=== PATIENT | male | born 1965 | race Caucasian/White ===

== ENCOUNTER 2020-02-03 13:21 | Emergency (ER) | payer BC ==
--- NOTE | 2020-02-03 13:44 | EDM.PDOC ---
ED HPI GENERAL MEDICAL PROBLEM - General Chief Complaint: Lower Extremity Injury/Pain Stated Complaint: FOOT RED AND SWOLLEN Time Seen by Provider: 02/03/20 13:35 Source of Information: Reports: Patient, RN Notes Reviewed - History of Present Illness INITIAL COMMENTS - FREE TEXT/NARRATIVE: 54 yr old male with R distal foot infection. He stepped on a relative large diameter piece of wire 3 days ago. It penetrated his shoe and sock and entered R distal lateral foot in the area of distal 4th MTP jt area. Over the last 2 days his foot has become more sore and erythematous located to distal lateral f oot. Has been on his a feet a lot the last 2 days and that has not helped him. Right Feet Pain Score (Numeric/FACES): 7 - Related Data Allergies Allergy/AdvReac Type Severity Reaction Status Date / Time No Known Allergies Allergy Verified 02/03/20 13:31 Home Meds: Home Meds Aspirin 325 mg PO BID PRN 02/03/20 [History] Doxycycline [Vibramycin] 100 mg PO BID #14 tab 02/03/20 [Rx] levoFLOXacin [Levaquin] 750 mg PO DAILY #10 tab 02/03/20 [Rx] Past Medical History - Past Health History Medical/Surgical History: Denies Medical/Surgical History - Infectious Disease History Infectious Disease History: Reports: None Social & Family History - Tobacco Use Smoking Status *Q: Never Smoker - Caffeine Use Caffeine Use: Reports: Coffee - Recreational Drug Use Recreational Drug Use: No Review of Systems - Review of Systems Review Of Systems: See Below Constitutional: Denies: Chills, Fever Mouth/Throat: Reports: No Symptoms Respiratory: Reports: No Symptoms Cardiovascular: Reports: No Symptoms GI/Abdominal: Denies: Abdominal Pain, Nausea, Vomiting Musculoskeletal: Reports: Foot Pain Skin: Reports: Erythema (R distal lateral foot) Neurological: Denies: Numbness, Tingling ED EXAM, GENERAL - Physical Exam Exam: See Below General Appearance: Alert, No Apparent Distress Head: Atraumatic Neck: Supple Respiratory/Chest: No Respiratory Distress Extremities: Redness (distal lateral foot, 4th and 5 th toes with mild swelling, moderate tenderness) Course - Vital Signs Last Recorded V/S: Last Vital Signs Temp 98.3 F 02/03/20 14:10 Pulse 73 02/03/20 14:10 Resp 18 02/03/20 14:10 BP 167/102 H 02/03/20 14:10 Pulse Ox 99 02/03/20 14:10 - Orders/Labs/Meds Orders: Active Orders 24 hr Category Date Time Status Foot Comp Min 3V Rt [CR] Stat Exams 02/03/20 13:52 Taken - Re-Assessments/Exams Free Text/Narrative Re-Assessment/Exam: 02/03/20 15:33. X rays show no evidence of foreign body or fx. Departure - Departure Time of Disposition: 14:59 Disposition: Home, Self-Care 01 Condition: Fair Clinical Impression: Cellulitis of foot - Discharge Information Prescriptions: levoFLOXacin [Levaquin] 750 mg PO DAILY #10 tab Doxycycline [Vibramycin] 100 mg PO BID #14 tab Instructions: Cellulitis, Adult Referrals: PCP,None [Primary Care Provider] - Forms: ED Department Discharge, ED Return to Work/School Form Additional Instructions: Levaquin 750 mg daily for 10 days, doxycycline 100 mg twice daily for 1 week. Avoid direct sunlight exposure to skin while taking doxycycline, that can cause a bad photosensitivity reaction which looks and feels like a bad sunburn. Both of those [facility] Return to ED if not better within 3 to 4 days or if worsening in any way. Rest and elevate foot as much as possible. No work recomended until next Friday. Sepsis Event Note (ED) - Evaluation Sepsis Screening Result: No Definite Risk - Focused Exam Vital Signs: Vital Signs Temp Pulse Resp BP Pulse Ox 02/03/20 14:10 98.3 F 73 18 167/102 H 99 02/03/20 13:28 98.1 F 70 16 146/100 H 96 - My Orders Last 24 Hours: My Active Orders 02/03/20 13:52 Foot Comp Min 3V Rt [CR] Stat - Assessment/Plan Last 24 Hours: My Active Orders 02/03/20 13:52 Foot Comp Min 3V Rt [CR] Stat
[2020-02-03 14:11] VITALS: BP 167/102; PULSE 73
--- NOTE | 2020-02-04 12:49 | CR ---
Right foot: 4 views of the right foot were obtained. Comparison: No prior foot exam is available. Minimal spur at the attachment of the Achilles tendon and the calcaneus is seen. No radiopaque foreign object is appreciated. No soft tissue air is seen. No discrete fracture or other bony abnormality is appreciated. Impression: 1. Minimal calcaneal spur. 2. Nothing acute is seen on right foot exam. Diagnostic code #2 This report was dictated in MDT
== END 2020-02-03 15:12 | disposition home or self-care (01) ==
LOC: JD.ED 13:21
DX: L03.115 Cellulitis of right lower limb (principal); Z79.82 Long term (current) use of aspirin
CPT/HCPCS: 73630-26-RT; 73630-RT; 99283-25

== ENCOUNTER 2021-03-19 09:42 | Emergency (ER) | payer BC ==
--- NOTE | 2021-03-19 10:46 | EDM.PDOC ---
ED HPI GENERAL MEDICAL PROBLEM - General Chief Complaint: General Stated Complaint: COVID +/WORSENING SYMPTOMS Time Seen by Provider: 03/19/21 10:45 - History of Present Illness INITIAL COMMENTS - FREE TEXT/NARRATIVE: 55-year-old male presents the emergency room with worsening Covid-like symptoms. She has been symptomatic for a little over a week. He has had a positive home Covid test. He was trying to get by at home but now he is getting progressively weaker and more concerned about his symptoms. The patient has nausea vomiting posttussive and lots of diarrhea. He has had some diminished taste and smell. These feels as though he might be dehydrated. He did not have the Covid vaccine. At this time the patient denies any past medical history of significance. He is not treated with any routine medications. Chest Pain Score (Numeric/FACES): 6 - Related Data Allergies Allergy/AdvReac Type Severity Reaction Status Date / Time No Known Allergies Allergy Verified 02/03/20 13:31 Home Meds: Home Meds Aspirin 325 mg PO BID PRN 02/03/20 [History] Doxycycline [Vibramycin] 100 mg PO BID #14 tab 02/03/20 [Rx] levoFLOXacin [Levaquin] 750 mg PO DAILY #10 tab 02/03/20 [Rx] Past Medical History - Past Health History Medical/Surgical History: Denies Medical/Surgical History - Infectious Disease History Infectious Disease History: Reports: None Social & Family History - Caffeine Use Caffeine Use: Reports: Coffee ED ROS GENERAL - Review of Systems Review Of Systems: See Below Constitutional: Reports: Chills HEENT: Reports: No Symptoms Respiratory: Reports: Pleuritic Chest Pain, Cough. Denies: Sputum Cardiovascular: Reports: Chest Pain Endocrine: Reports: Fatigue GI/Abdominal: Reports: Diarrhea, Nausea, Vomiting (Posttussive) : Reports: No Symptoms Musculoskeletal: Reports: No Symptoms Skin: Reports: No Symptoms Neurological: Reports: No Symptoms Psychiatric: Reports: No Symptoms Hematologic/Lymphatic: Reports: No Symptoms Immunologic: Reports: No Symptoms ED EXAM, GENERAL - Physical Exam Exam: See Below Exam Limited By: No Limitations General Appearance: Alert, No Apparent Distress, Obese Eye Exam: Bilateral Eye: Normal Inspection Ears: Normal External Exam, Normal Canal, Hearing Grossly Normal, Normal TMs Nose: Normal Inspection, Normal Mucosa, No Blood Throat/Mouth: Normal Inspection, Normal Lips, Normal Teeth, Normal Gums, Normal Oropharynx, Normal Voice, No Airway Compromise Head: Atraumatic, Normocephalic Neck: Normal Inspection, Supple, Non-Tender, Full Range of Motion. No: Lymphadenopathy (L), Lymphadenopathy (R) Respiratory/Chest: No Respiratory Distress, Lungs Clear, Normal Breath Sounds Cardiovascular: Regular Rate, Rhythm, No Edema, No Murmur GI/Abdominal: Normal Bowel Sounds, Soft, Non-Tender Back Exam: Normal Inspection. No: CVA Tenderness (L), CVA Tenderness (R) Extremities: Pedal Edema (Scant lower extremity edema patient says this is much better than it usually is) #1 Interpretation EKG Date: 03/19/21 Rhythm: NSR Rate (Beats/Min): 74 [place]: Normal P-Wave: Present QRS: Other (Late transition borderline interventricular conduction delay) ST-T: Normal QT: Normal Comparison: NA - No Prior EKG EKG Interpretation Comments: Abnormal EKG Course - Vital Signs Last Recorded V/S: Last Vital Signs Temp 37.8 C 03/19/21 14:30 Pulse 82 03/19/21 14:30 Resp 18 03/19/21 14:30 BP 133/84 03/19/21 14:30 Pulse Ox 96 03/19/21 14:30 - Orders/Labs/Meds Orders: Active Orders 24 hr Category Date Time Status Vital Signs [RC] Q15M Care 03/19/21 12:31 Active EPINEPHrine [Adrenalin] Med 03/19/21 12:31 Active 0.3 mg IM ASDIRECTED PRN Famotidine [Pepcid] Med 03/19/21 12:31 Active 20 mg IVPUSH ASDIRECTED PRN Sodium Chloride 0.9% [Saline Flush] Med 03/19/21 12:45 Active 30 ml FLUSH ASDIRECTED diphenhydrAMINE [Benadryl] Med 03/19/21 12:31 Active 50 mg IVPUSH ASDIRECTED PRN methylPREDNISolone Sod Succ [Solu-MEDROL] Med 03/19/21 12:31 Active 125 mg IVPUSH ASDIRECTED PRN Medication Orders Diphenhydramine HCl (Diphenhydramine 50 Mg/Ml Sdv) 50 mg IVPUSH ASDIRECTED PRN PRN Reason: hypersensitivity reaction Epinephrine HCl (Epinephrine 1 Mg/Ml Sdv) 0.3 mg IM ASDIRECTED PRN PRN Reason: hypersensitivity reaction Famotidine (Famotidine 20 Mg/2 Ml Sdv) 20 mg IVPUSH ASDIRECTED PRN PRN Reason: hypersensitivity reaction Methylprednisolone Sodium Succinate (Methylprednisolone Sodium Succinate 125 Mg/2 Ml Sdv) 125 mg IVPUSH ASDIRECTED PRN PRN Reason: hypersensitivity reaction Sodium Chloride (Sodium Chloride 0.9% 10 Ml Syringe) 30 ml FLUSH ASDIRECTED LÓPEZ Labs: Laboratory Tests 03/19/21 03/19/21 03/19/21 Range/Units 10:25 10:25 10:25 WBC 2.61 L (4.23-9.07) K/mm3 RBC 5.34 (4.63-6.08) M/mm3 Hgb 16.4 (13.7-17.5) gm/dl Hct 47.8 (40.1-51.0) % MCV 89.5 (79.0-92.2) fl MCH 30.7 (25.7-32.2) pg MCHC 34.3 (32.2-35.5) g/dl RDW Std Deviation 41.6 (35.1-43.9) fL Plt Count 106 L D (163-337) K/mm3 MPV 10.7 (9.4-12.3) fl Neut % (Auto) 65.5 (34.0-67.9) % Lymph % (Auto) 22.2 (21.8-53.1) % [place] % (Auto) 10.3 (5.3-12.2) % Eos % (Auto) 0.8 (0.8-7.0) Baso % (Auto) 0.4 (0.1-1.2) % Neut # (Auto) 1.71 L (1.78-5.38) K/mm3 Lymph # (Auto) 0.58 L (1.32-3.57) K/mm3 [place] # (Auto) 0.27 L (0.30-0.82) K/mm3 Eos # (Auto) 0.02 L (0.04-0.54) K/mm3 Baso # (Auto) 0.01 (0.01-0.08) K/mm3 D-Dimer, Quantitative 0.74 H (0.19-0.50) mg/L Sodium 136 (136-145) mEq/L Potassium 4.9 (3.5-5.1) mEq/L Chloride 99 (98-107) mEq/L Carbon Dioxide 31 (21-32) mEq/L Anion Gap 10.9 (5-15) BUN 17 (7-18) mg/dL Creatinine 1.1 (0.7-1.3) mg/dL Est Cr Clr Drug Dosing 78.91 mL/min Estimated GFR (MDRD) > 60 (>60) mL/min BUN/Creatinine Ratio 15.5 (14-18) Glucose 299 H (70-99) mg/dL Calcium 8.6 (8.5-10.1) mg/dL Ferritin (26-388) ng/ml Total Bilirubin 0.5 (0.2-1.0) mg/dL AST 21 (15-37) U/L ALT 37 (16-63) U/L Alkaline Phosphatase 78 (46-116) U/L Lactate Dehydrogenase (85-227) U/L Troponin I < 0.017 (0.00-0.056) ng/mL C-Reactive Protein (<1.0) mg/dL Total Protein 7.0 (6.4-8.2) g/dl Albumin 3.1 L (3.4-5.0) g/dl Globulin 3.9 gm/dL Albumin/Globulin Ratio 0.8 L (1-2) 03/19/21 03/19/21 Range/Units 10:25 10:25 WBC (4.23-9.07) K/mm3 RBC (4.63-6.08) M/mm3 Hgb (13.7-17.5) gm/dl Hct (40.1-51.0) % MCV (79.0-92.2) fl MCH (25.7-32.2) pg MCHC (32.2-35.5) g/dl RDW Std Deviation (35.1-43.9) fL Plt Count (163-337) K/mm3 MPV (9.4-12.3) fl Neut % (Auto) (34.0-67.9) % Lymph % (Auto) (21.8-53.1) % [place] % (Auto) (5.3-12.2) % Eos % (Auto) (0.8-7.0) Baso % (Auto) (0.1-1.2) % Neut # (Auto) (1.78-5.38) K/mm3 Lymph # (Auto) (1.32-3.57) K/mm3 [place] # (Auto) (0.30-0.82) K/mm3 Eos # (Auto) (0.04-0.54) K/mm3 Baso # (Auto) (0.01-0.08) K/mm3 D-Dimer, Quantitative (0.19-0.50) mg/L Sodium (136-145) mEq/L Potassium (3.5-5.1) mEq/L Chloride (98-107) mEq/L Carbon Dioxide (21-32) mEq/L Anion Gap (5-15) BUN (7-18) mg/dL Creatinine (0.7-1.3) mg/dL Est Cr Clr Drug Dosing mL/min Estimated GFR (MDRD) (>60) mL/min BUN/Creatinine Ratio (14-18) Glucose (70-99) mg/dL Calcium (8.5-10.1) mg/dL Ferritin 619 H (26-388) ng/ml Total Bilirubin (0.2-1.0) mg/dL AST (15-37) U/L ALT (16-63) U/L Alkaline Phosphatase (46-116) U/L Lactate Dehydrogenase 215 (85-227) U/L Troponin I (0.00-0.056) ng/mL C-Reactive Protein 2.0 H* (<1.0) mg/dL Total Protein (6.4-8.2) g/dl Albumin (3.4-5.0) g/dl Globulin gm/dL Albumin/Globulin Ratio (1-2) Meds: Medications Generic Name Dose Route Start Last Admin Trade Name Freq PRN Reason Stop Dose Admin Diphenhydramine HCl 50 mg 03/19/21 12:31 Diphenhydramine 50 Mg/Ml Sdv IVPUSH ASDIRECTED PRN hypersensitivity reaction Epinephrine HCl 0.3 mg 03/19/21 12:31 Epinephrine 1 Mg/Ml Sdv IM ASDIRECTED PRN hypersensitivity reaction Famotidine 20 mg 03/19/21 12:31 Famotidine 20 Mg/2 Ml Sdv IVPUSH ASDIRECTED PRN hypersensitivity reaction Methylprednisolone Sodium Succinate 125 mg 03/19/21 12:31 Methylprednisolone Sodium Succinate 125 Mg/2 Ml Sdv IVPUSH ASDIRECTED PRN hypersensitivity reaction Sodium Chloride 30 ml 03/19/21 12:45 Sodium Chloride 0.9% 10 Ml Syringe FLUSH ASDIRECTED LÓPEZ Discontinued Medications Generic Name Dose Route Start Last Admin Trade Name Huaq PRN Reason Stop Dose Admin CASIRIVIMAB/IMDEVIMAB 10 ml/ 110 mls @ 220 mls/hr 03/19/21 12:31 Sodium Chloride IV 03/19/21 13:00 ONETIME ONE CASIRIVIMAB/IMDEVIMAB 10 ml/ 110 mls @ 220 mls/hr 03/19/21 13:30 03/19/21 13:40 Sodium Chloride IV 03/19/21 13:59 220 mls/hr ONETIME ONE Administration - Re-Assessments/Exams Free Text/Narrative Re-Assessment/Exam: 03/19/21 12:29 Covid is positive chest x-ray is consistent with a mild Covid pneumonia labs also consistent with Covid. Patient has voiced some interest in monoclonal antibody therapy we did discuss this and he would like to pursue this option. I spoke with the patient to provide information about REGEN-COV treatment. I offered them the Patient and Caregiver EUA REGEN-COV Fact Sheet to read and review. I stated the drug has been approved by an emergency use authorization (EUA} process and has not fully been FDA reviewed or approved. The patient meets the EUA requirements. I discussed there are other potential treatment options that are currently not FDA approved to treat COVID 19. Offered opportunity to ask questions and all questions were answered. The patient voiced understanding and agreed to proceed with treatment. 03/19/21 16:01 Patient is doing well after the infusion and would like to go home. Departure - Departure Time of Disposition: 16:01 Disposition: Home, Self-Care 01 Clinical Impression: COVID-19, Pneumonia due to COVID-19 virus - Discharge Information Referrals: PCP,None [Primary Care Provider] - Forms: ED Department Discharge Additional Instructions: Return to the emergency room with any questions problems or worsening symptoms. Tylenol as needed for aches pains discomfort and fever. Push fluids as tolerated. Home isolation for 10 days after the onset of symptoms. Establish with a local physician. Sepsis Event Note (ED) - Focused Exam Vital Signs: Vital Signs Temp Pulse Resp BP Pulse Ox 03/19/21 14:30 37.8 C 82 18 133/84 96 03/19/21 13:41 37.7 C 78 16 137/83 95 03/19/21 10:20 36.6 C 70 12 146/87 H 96 - My Orders Last 24 Hours: My Active Orders 03/19/21 12:31 Vital Signs [RC] Q15M EPINEPHrine [Adrenalin] 0.3 mg IM ASDIRECTED PRN Famotidine [Pepcid] 20 mg IVPUSH ASDIRECTED PRN diphenhydrAMINE [Benadryl] 50 mg IVPUSH ASDIRECTED PRN methylPREDNISolone Sod Succ [Solu-MEDROL] 125 mg IVPUSH ASDIRECTED PRN 03/19/21 12:45 Sodium Chloride 0.9% [Saline Flush] 30 ml FLUSH ASDIRECTED - Assessment/Plan Last 24 Hours: My Active Orders 03/19/21 12:31 Vital Signs [RC] Q15M EPINEPHrine [Adrenalin] 0.3 mg IM ASDIRECTED PRN Famotidine [Pepcid] 20 mg IVPUSH ASDIRECTED PRN diphenhydrAMINE [Benadryl] 50 mg IVPUSH ASDIRECTED PRN methylPREDNISolone Sod Succ [Solu-MEDROL] 125 mg IVPUSH ASDIRECTED PRN 03/19/21 12:45 Sodium Chloride 0.9% [Saline Flush] 30 ml FLUSH ASDIRECTED
--- NOTE | 2021-03-19 11:23 | CR ---
Chest: Frontal view of the chest was obtained. Comparison: No prior chest imaging is available. Patchy increased density is seen within both lung bases. Minimal increased density within left upper lung. Heart size and mediastinum are normal. Scoliosis is noted within the spine. Impression: 1. Slight patchy density within both lung bases and left upper lung most likely representing COVID pneumonia. 2. Slight scoliosis within the spine. Diagnostic code #3
[2021-03-19] MEDS ORDERED: Famotidine 20 MG/2 ML SDV IVPUSH PRN (12:31)
[2021-03-19] MEDS ORDERED: EPINEPHrine 1 MG/ML SDV IM PRN (12:31)
[2021-03-19] MEDS ORDERED: diphenhydrAMINE 50 MG/ML SDV IVPUSH PRN (12:31)
[2021-03-19] MEDS ORDERED: methylPREDNISolone Sodium Succinate 125 MG/2 ML SDV IVPUSH PRN (12:31)
[2021-03-19] MEDS ORDERED: Sodium Chloride 0.9% 10 ML Syringe FLUSH SCH (12:45)
[2021-03-19 16:26] VITALS: BP 140/87; PULSE 76
== END 2021-03-19 16:30 | disposition home or self-care (01) ==
LOC: JD.ED 09:42
DX: U07.1 COVID-19 (principal); J12.82 Pneumonia due to coronavirus disease 2019; Z72.0 Tobacco use
CPT/HCPCS: 36415; 71045; 80053; 82728; 83615; 84484; 85025; 85379; 86140; 99285; M0243; Q0243

== ENCOUNTER 2025-04-12 10:08 | Emergency (ER) | payer OTHER ==
[2025-04-12 10:19] VITALS: PULSE 62
[2025-04-12] MEDS ORDERED: Sodium Chloride 0.9% 10 ML Syringe FLUSH PRN (10:34)
[2025-04-12 11:09] LABS: BASOPHILS ABSOLUTE AUTO 0.0 K/mm3 (0.0-0.2); BASOPHILS PERCENT AUTO 0.4 % (0.0-1.0); EOSINOPHILS ABSOLUTE AUTO 0.1 K/mm3 (0.0-0.4); EOSINOPHILS PERCENT AUTO 1.7 % (0.0-6.0); IMMATURE GRAN ABSOLUTE AUTO 0.01 K/mm3 (0.00-0.05); IMMATURE GRAN PERCENT AUTO 0.2 % (0.0-0.4); LYMPHOCYTES ABSOLUTE AUTO 1.2 K/mm3 (1.0-4.8); LYMPHOCYTES PERCENT AUTO 25.0 % (24.0-44.0); MEAN PLATELET VOLUME 10.0 fl (9.4-12.4); MONOCYTES ABSOLUTE AUTO 0.4 K/mm3 (0.0-0.8); MONOCYTES PERCENT AUTO 8.3 % (0.0-8.0); NEUTROPHILS ABSOLUTE AUTO 3.0 K/mm3 (1.8-7.7); NEUTROPHILS PERCENT AUTO 64.4 % (41.0-71.0); NRBC ABSOLUTE 0.00 (0.00-0.02); NRBC PERCENT 0.0 % (0.0-0.2); PLATELET COUNT,PLT 171 K/mm3 (150-400); RED BLOOD CELL COUNT 4.42 M/mm3 (4.52-5.90); WHITE BLOOD CELL COUNT,WBC 4.60 K/mm3 (3.9-11.3)
[2025-04-12 11:37] LABS: TROPONIN I HIGH SENSITIVITY 146 pg/mL (<=76)
[2025-04-12 13:02] VITALS: BP 148/79
== END 2025-04-12 12:20 | disposition left against medical advice (07) ==
LOC: JD.ED 10:08
DX: I21.4 Non-ST elevation (NSTEMI) myocardial infarction (principal); I10 Essential (primary) hypertension; Z53.20 Procedure and treatment not carried out because of patient's decision for unspecified reasons; Z79.899 Other long term (current) drug therapy; Z86.16 Personal history of COVID-19
CPT/HCPCS: 36415; 83690; 84484; 85025; 93005; 99285; A9270